=== PATIENT | male | born 1975 | race Caucasian/White ===

== ENCOUNTER 2016-09-21 20:56 | Emergency (ER) | payer OTHER ==
--- NOTE | ~2016-09-21 | ER ---
[facility] AGE: 41 Y [address] ROOM: [place] [address] LOCATION: [facility] ADMIT DATE: 09/21/2016 ER/Outpatient Report DISCHARGE DATE: 09/21/2016 FAMILY PHYSICIAN: PHYSICIAN, NO ATTENDING PHYSICIAN: Garcia Retana TIME OF ARRIVAL: 2056 hours. TIME OF EVALUATION: 2101 hours. CHIEF COMPLAINT: Left knee pain. HISTORY OF PRESENT ILLNESS: The patient is a 41-year-old male who presents to the emergency department today with a chief complaint of left knee pain. He reports this started 2 weeks ago. He reports when he was standing up today it got worse. He felt like his knee was unable to hold him up. He is having some swelling. It is sharp pain. It is currently 5/10 in severity. It is worse with movement. PAST MEDICAL HISTORY: None. PAST SURGICAL HISTORY: Right leg. SOCIAL HISTORY: The patient smokes a pack per day. Denies any alcohol use. Does use marijuana occasionally. ALLERGIES: NO KNOWN DRUG ALLERGIES. MEDICATIONS: None. PRIMARY CARE DOCTOR: None. REVIEW OF SYSTEMS: All systems are reviewed by myself and are negative with the exception of those discussed in HPI and past medical history. PAT[facility]'S [facility] AGE: 41 Y [address] ROOM: [place] [address] LOCATION: [facility] ADMIT DATE: 09/21/2016 ER/Outpatient Report DISCHARGE DATE: 09/21/2016 FAMILY PHYSICIAN: PHYSICIAN, NO ATTENDING PHYSICIAN: Garcia Retana PHYSICAL EXAMINATION: VITAL SIGNS: Weight 89.4 kg. Blood pressure 134/78, pulse 86, respiratory rate 18, temperature 98.9, and oxygen saturation 97% on room air. GENERAL: The patient is a 41-year-old male, appears stated age, in no acute distress at this time. HEENT: Head: Normocephalic, atraumatic. Pupils are equal, round, and reactive to light and accommodation. Extraocular motions are intact. NECK: Supple. There is no nuchal rigidity. CARDIOVASCULAR: Regular rate and rhythm. No murmurs, rubs, or gallops. LUNGS: Clear to auscultation bilaterally. No wheezes, rales, or rhonchi. ABDOMEN: Soft, nontender, and nondistended. No rebound, rigidity, or guarding. MUSCULOSKELETAL: The patient does have some tenderness to palpation bilateral medial and lateral knee. Anterior drawer appears negative. Medial and lateral stress appears negative. Skin is warm and dry. A 2/4 pulses DP and PT are equal bilaterally. LABS AND X-RAYS: Three-view x-ray of the left knee is obtained, is interpreted by myself, shows no acute fracture or dislocation. IMPRESSION: 1. Acute left knee strain. 2. Initial visit. EMERGENCY DEPARTMENT COURSE: The patient brought back to the examination room. Seen and evaluated by myself. X-rays obtained as described above. I have discussed results of the x-ray with the patient. We will place the patient in a knee immobilizer. He does have crutches at home. I have written a prescription for Naprosyn for home. I have asked he follows up with Orthopedic Surgery, if there is no improvement, he is to call for an appointment. I have also asked he follows up with primary care doctor in 2 to 3 days for reevaluation. I have discussed return to care instructions including worsening symptoms or other any concerns to return to the emergency department as soon as possible. I have discussed rest, ice, compression, and elevation. I have recommended he uses crutches as needed for pain. DISPOSITION: The patient is discharged home in good condition. GARCIA RETANA DO PATIENT'S NAME: BETO GUAJARDO [facility] AGE: 41 Y [address] ROOM: [place], [place] [address] LOCATION: [facility] ADMIT DATE: 09/21/2016 ER/Outpatient Report DISCHARGE DATE: 09/21/2016 FAMILY PHYSICIAN: PHYSICIAN, NO ATTENDING PHYSICIAN: Garcia Retana/simi /[id number] d: 09/22/166 t: 09/22/16 0206, OUTPATIENT REPORT
== END 2016-09-21 22:00 | disposition disaster alternative care site (69) ==
LOC: GMED 20:56
PROC: 2W3RX1Z Immobilization of Left Lower Leg using Splint (ICD-10-PCS; principal; 2016-09-21)
DX: S86.912A Strain of unspecified muscle(s) and tendon(s) at lower leg level, left leg, initial encounter (principal); F17.210 Nicotine dependence, cigarettes, uncomplicated; X50.9XXA Other and unspecified overexertion or strenuous movements or postures, initial encounter